=== PATIENT | female | born 1965 | race Caucasian/White ===

== ENCOUNTER → 2019-10-23 | Outpatient (CLI) | payer OTHER ==
[~2019-10-23] MED LIST: ASPIRIN 81M81 MG/TA2 PO; ASPIRIN E.C. 8181 MG PO; COZAAR 25MG25 MG/TAB PO; DIABETA 5MG5 MG/TAB PO; EFFIENT10 MG PO; GLUCOPHAGE1000 MG PO; GLUCOPHAGE500 MG/TAB PO; IBU400 MG PO; LIPITOR20 MG PO; LOPRESSOR 225 MG/TAB PO; NITROQUICK0.4 MG SL; NITROSTAT0.4 MG/TAB SL; PLAVIX 75MG TAB75 MG PO; PRINIVIL5 MG PO; UNABLE; diabetic med
== END ==
LOC: MC.RAD 14:40
DX: Z12.31 Encounter for screening mammogram for malignant neoplasm of breast (principal)

== ENCOUNTER → 2021-10-22 | Outpatient (CLI) | payer SELFPAY | LOC: MC.RAD 11:45 | DX: Z12.31 Encounter for screening mammogram for malignant neoplasm of breast (principal) ==